=== PATIENT | male | born 1990 | race Two or more races ===

== ENCOUNTER 2021-03-20 23:19 | Emergency (ER) | payer SELFPAY ==
[~2021-03-20] VITALS: Ht 162.6 cm; Wt 90.9 kg
--- NOTE | 2021-03-20 23:33 | PHYS DOC ---
General Adult EDM: Chief Complaint: MULTIPLE COMPLAINTS HPI: HPI: Patient is a 30-year-old male presenting for multiple complaints. He has had generalized URI symptoms for past 24 hours that were exacerbated when attending a bonfire this evening. Does admit he drinks several alcoholic beverages and used marijuana. Reports he was sleeping and had some convulsions in his legs which worried his friends and he was staying with prompting them to wake him up and brought him to our ER for evaluation. On arrival, patient complains that he is short of breath and has been dry nonproductive cough. She feels fatigued. He states it hurts at times to swallow. No fever, vision changes, ripping or tearing sensation in chest, abdominal pain, changes in motor or sensory or neuro function. He is not vaccinated against COVID-19. Does not have any known medical issues, takes no medications on a daily basis Review of Systems: Review of Systems: Fourteen body systems of review of systems have been reviewed. See HPI for pertinent positives and negative responses, other chery all other systems are negative, non-pertinent or non-contributory Heart Score: C/O Chest Pain: Yes HEART Score for Chest Pain: HEART Score for Chest Pain Response (Comments) Value History Slighlty/Non-Suspicious 0 ECG Normal 0 Age < 45 0 Risk Factors No Risk Factors 0 Total 0 Risk Factors: Risk Factors: DM, Current or recent (<one month) smoker, HTN, HLP, family history of CAD, obesity. Risk Scores: Score 0 - 3: 2.5% MACE over next 6 weeks - Discharge Home Score 4 - 6: 20.3% MACE over next 6 weeks - Admit for Clinical Observation Score 7 - 10: 72.7% MACE over next 6 weeks - Early Invasive Strategies Physical Exam: PE: Constitutional: Well developed, well nourished, no acute distress, non-toxic appearance. HENT: Normocephalic, atraumatic, bilateral external ears normal, oropharynx moist, posterior oropharynx injected and appears erythematous without oral exudates or obvious abscess, tolerating secretions, no phonation changes, nose normal. Eyes: PERRLA, EOMI, conjunctiva injected bilaterally, no discharge. Neck: Normal range of motion, no tenderness, supple, no stridor. Cardiovascular: Heart rate regular, sinus rhythm, no murmurs rubs or gallops Lungs & Thorax: Bilateral breath sounds clear to auscultation Abdomen: Bowel sounds normal, soft, no tenderness, no masses, no pulsatile masses. Nonsurgical abdomen, no peritoneal signs Skin: Warm, dry, no erythema, no rash. Back: No tenderness, no CVA tenderness. Extremities: No tenderness, no cyanosis, no clubbing, ROM intact, no edema. Neurologic: Alert and oriented X 3, grossly normal motor & sensory function, no focal deficits noted. Psychologic: Affect normal, judgement normal, mood normal. Current Patient Data: Vital Signs: Vital Signs Date Time Temp Pulse Resp B/P (MAP) Pulse Ox O2 Delivery O2 Flow Rate FiO2 03/20/21 23:26 85 22 140/80 (100) 95 Room Air Vital Signs Date Time Temp Pulse Resp B/P (MAP) Pulse Ox O2 Delivery O2 Flow Rate FiO2 03/20/21 23:26 85 22 140/80 (100) 95 Room Air EKG: EKG: EKG ordered and interpreted by myself at 2330 hrs. as sinus rhythm at 87 bpm, unremarkable intervals, left axis deviation, no acute ischemic findings, no STEMI Radiology/Procedures: Radiology/Procedures: EXAM: AP View of the chest DATE: 03/20/2021 11:53 PM INDICATION: Reason: CHEST PAIN / Spl. Instructions: / History: COMPARISON: No Prior FINDINGS: Heart is mildly enlarged. Patchy perihilar airspace opacities. No pleural effusion or pneumothorax. IMPRESSION: 1. Patchy perihilar airspace opacities possibly atelectasis or developing consolidation. Electronically signed by: Ryne Muller MD (03/21/2021 12:10 AM) [facility] Course & Med Decision Making: Course & Med Decision Making Pertinent Labs and Imaging studies reviewed. (See chart for details) [] Dragon Disclaimer: Dragon Disclaimer: This electronic medical record was generated, in whole or in part, using a voice recognition dictation system. Departure Departure Impression: Primary Impression: Atypical pneumonia Disposition: 01 HOME / SELF CARE / HOMELESS Condition: STABLE Patient Instructions: Pneumonia, Adult Additional Instructions: As discussed prior to ER departure, your presenting symptoms were concerning for a developing pneumonia. This is likely an atypical pneumonia in nature due to your age. I think your condition was exacerbated by recent alcohol use and exposure to outdoor smoke at a [employer]. As such, you were prescribed antibiotics which you should take as prescribed to completion. In addition, you should avoid any type of smoke whatsoever as this will exacerbate your symptoms. Please contact your primary care physician first thing tomorrow to review ER visit and need for close outpatient follow-up to ensure symptomatic resolution. If any concerning signs or symptoms present prior to outpatient follow-up please do not hesitate to come back for repeat evaluation. It was a pleasure to take care of you and I wish you the best going forward Scripts Azithromycin (ZITHROMAX TRI-ROSS) 500 Mg Tablet 1 TAB PO DAILY, #3 TAB Prov: MIRIAM GAUTHIER DO 03/21/21 MIRIAM GAUTHIER DO Mar 20, 2021 23:33
--- NOTE | 2021-03-21 00:12 | RAD ---
EXAM: AP View of the chest DATE: 03/20/2021 11:53 PM INDICATION: Reason: CHEST PAIN / Spl. Instructions: / History: COMPARISON: No Prior FINDINGS: Heart is mildly enlarged. Patchy perihilar airspace opacities. No pleural effusion or pneumothorax. IMPRESSION: 1. Patchy perihilar airspace opacities possibly atelectasis or developing consolidation. Electronically signed by: Ryne Muller MD (03/21/2021 12:10 AM) [facility]
[2021-03-21 00:27] VITALS: BP 127/65
[2021-03-21] MEDS ORDERED: AZIT500T2 PO (00:40)
--- NOTE | 2021-03-21 02:25 | EKG ---
[facility] [address] [place] [address] Test Date: 2021-03-20 Test Time: 23:28:23 Pat Name: CHAVA ORELLANA Department: Room: Gender: M [employer]: : 1990 Requested By: MIRIAM GAUTHIER Order Number: [id number] Reading MD: Measurements Intervals Emily Rate: 87 P: 28 AL: 142 QRS: -7 QRSD: 98 T: 10 QT: 350 QTc: 427 Interpretive Statements SINUS RHYTHM LEFTWARD AXIS OTHERWISE NORMAL ECG RI6.02 No previous ECG available for comparison
== END 2021-03-21 00:49 | disposition home or self-care (01) ==
LOC: ER 23:19
DX: J18.9 Pneumonia, unspecified organism (principal); Z20.822 Contact with and (suspected) exposure to COVID-19
CPT/HCPCS: 71045; 87070; 87426; 87880; 93005; 99285; U0003; U0005